=== PATIENT | female | born 1985 | race Two or more races ===

== ENCOUNTER 2023-03-04 05:14 | Inpatient (IN) | payer OTHER ==
[~2023-03-04] VITALS: Ht 172.7 cm; Wt 98.4 kg
[2023-03-04] MEDS ORDERED: PRENATAL CAPLE1 EAC1 PO (06:02)
[2023-03-04] MEDS ORDERED: PEPCID AC20 MG PO (06:02)
[2023-03-04] MEDS ORDERED: FOLIC ACID0.4 MG PO (06:03)
== END 2023-03-06 12:58 | disposition home or self-care (01) | DRG 788 ==
LOC: LDR 05:14 → OB/GYN 21:42
PROVIDERS: ADMIT Obstetrics & Gynecology; ATTEND Obstetrics & Gynecology
PROC: 4A1HXCZ Monitoring of Products of Conception, Cardiac Rate, External Approach (ICD-10-PCS; 2023-03-04)
PROC: 10D00Z1 Extraction of Products of Conception, Low, Open Approach (ICD-10-PCS; principal; 2023-03-04 16:00)
DX: O62.1 Secondary uterine inertia (principal); Z3A.38 38 weeks gestation of pregnancy; Z37.0 Single live birth; Z20.822 Contact with and (suspected) exposure to COVID-19

== ENCOUNTER 2024-09-15 13:00 | Emergency (ER) | payer OTHER ==
[~2024-09-15] VITALS: Ht 172.7 cm; Wt 93.0 kg
[~2024-09-15 13:00] MED LIST: FOLIC ACID0.4 MG PO; PEPCID AC20 MG PO; PRENATAL CAPLE1 EAC1 PO
[2024-09-15] MEDS ORDERED: METHYLPREDNISOLONE SOD SUCC 125 MG VIAL IV ONE (13:30)
[2024-09-15] MEDS ORDERED: HYDROCODONE/CHLORPHEN P-STIREX 5 ML ML PO ONE (13:30)
[2024-09-15] MEDS ORDERED: AZITHROMYCIN 500 MG TABLET PO ONE (13:30)
[2024-09-15] MEDS ORDERED: GUAIFENESIN/DEXTROMETHORPHAN 10ML BLIST.PACK PO ONE (13:45)
[2024-09-15 13:53] LABS: HEMOGLOBIN 12.7 g/dL (12.0-15.00); MEAN CELL VOLUME 90.4 fL (80.00-100.00); MEAN CORPUSCULAR HEMOGLOBIN 31.8 pg (27.00-32.0); MEAN CORPUSCULAR HGB CONC 35.2 g/dl (32.0-36.0); PLATELET COUNT 231 K/uL (150-450); RED BLOOD COUNT 3.98 M/uL (4.00-6.00); RED CELL DISTRIBUTION WIDTH 13.3 % (11.5-14.5)
[2024-09-15 14:18] LABS: BILIRUBIN TOTAL 0.21 mg/dL (0.3-1.2); CALCIUM 8.8 mg/dL (8.5-10.1); CREATININE SERUM 0.74 mg/dL (0.55-1.02); GFR 88.31; GLOBULINA 3.7 G/DL (2.4-3.5); POTASSIUM 3.59 mEq/L (3.5-5.1); TOTAL PROTEIN 6.7 gm/dL (6.4-8.2)
[2024-09-15] MEDS ORDERED: IPRATROPIU0.2 MG/1 M IH (17:24)
[2024-09-15] MEDS ORDERED: AZITHROMYCIN500 MG PO (17:24)
[2024-09-15] MEDS ORDERED: PEPCID AC20 MG PO (17:24)
== END 2024-09-15 17:37 | disposition home or self-care (01) ==
LOC: ER 13:02
PROVIDERS: General Practice
DX: J06.9 Acute upper respiratory infection, unspecified (principal); Z20.822 Contact with and (suspected) exposure to COVID-19

== ENCOUNTER 2024-11-28 13:13 | Outpatient (CLI) | payer OTHER ==
[~2024-11-28 13:13] MED LIST changes: +AZITHROMYCIN500 MG PO; +IPRATROPIU0.2 MG/1 M IH
== END 2024-11-28 13:43 | disposition home or self-care (01) ==
LOC: NST 13:13
PROVIDERS: ATTEND Obstetrics & Gynecology
DX: Z3A.35 35 weeks gestation of pregnancy (principal)

== ENCOUNTER 2024-12-05 13:12 | Outpatient (CLI) | payer OTHER | END 2024-12-05 13:58 | disposition home or self-care (01) | LOC: NST 13:12 | PROVIDERS: ATTEND Obstetrics & Gynecology Gynecology | DX: Z34.83 Encounter for supervision of other normal pregnancy, third trimester (principal) ==

== ENCOUNTER 2024-12-19 11:45 | Inpatient (IN) | payer OTHER ==
[~2024-12-19] VITALS: Ht 172.7 cm; Wt 102.5 kg
[2024-12-19 14:24] LABS: HEMATOCRIT 37.7 % (36.0-45.00); HEMOGLOBIN 13.2 g/dL (12.0-15.00); MEAN CELL VOLUME 89.8 fL (80.00-100.00); MEAN CORPUSCULAR HEMOGLOBIN 31.6 pg (27.00-32.0); MEAN CORPUSCULAR HGB CONC 35.2 g/dl (32.0-36.0); PLATELET COUNT 213 K/uL (150-450); RED BLOOD COUNT 4.19 M/uL (4.00-6.00); RED CELL DISTRIBUTION WIDTH 13.2 % (11.5-14.5)
[2024-12-19 15:09] LABS: INR < 0.93; PARTIAL THROMBOPLASTIN TIME 26.2 SECONDS (22.0-34.0); PROTHROMBIN TIME 9.9 SECONDS (9.0-11.5)
[2024-12-19 16:02] LABS: ALBUMIN 2.9 gm/dL (3.4-5.0); BILIRUBIN TOTAL 0.3 mg/dL (0.3-1.2); CALCIUM 9.1 mg/dL (8.5-10.1); CREATININE SERUM 0.66 mg/dL (0.55-1.02); GFR 100.23; GLOBULINA 3.4 G/DL (2.4-3.5); POTASSIUM 4.71 mEq/L (3.5-5.1); TOTAL PROTEIN 6.3 gm/dL (6.4-8.2)
[2024-12-27 20:00] VITALS: BP 120/80
[2024-12-27] MEDS ORDERED: METFORMIN HCL500 M4 (20:39)
[2024-12-27] MEDS ORDERED: RINGERS SOLUTION,LACTATED 1,000 ML IV SCH (21:00)
[2024-12-27 23:06] VITALS: BP 118/77
[2024-12-28] MEDS ORDERED: AMPICILLIN SODIUM 2,000 MG in 0.9 % SODIUM CHLORIDE 100 ML IV SCH
[2024-12-28] MEDS ORDERED: AMPICILLIN SODIUM 2,000 MG VIAL ONE ×2 (01:10→05:29)
[2024-12-28 03:52] VITALS: BP 115/77
[2024-12-28 06:04] VITALS: BP 118/80; O2SAT 98
[2024-12-28 11:47] VITALS: BP 110/74; O2SAT 99
[2024-12-28] MEDS ORDERED: ERYTHROMYCIN BASE OPHT 1GM EACH TUBE OP ONE (12:35)
[2024-12-28] MEDS ORDERED: OXYTOCIN 10 UNITS/ML VIAL ONE ×2 (12:35→17:35)
[2024-12-28] MEDS ORDERED: CEFAZOLIN SODIUM 1,000 MG VIAL ONE (12:56)
[2024-12-28] MEDS ORDERED: CITRIC ACID/SODIUM CITRATE 30 ML BLIST.PACK PO ONE (12:56)
[2024-12-28] MEDS ORDERED: MORPHINE SULFATE 4 MG/ML CARTRIDGE IV PRN (14:45)
[2024-12-28] MEDS ORDERED: OXYTOCIN 1,000 ML IV ONE (14:45)
[2024-12-28] MEDS ORDERED: RINGERS SOLUTION,LACTATED 1,000 ML IV SCH (14:45)
[2024-12-28] MEDS ORDERED: MORPHINE SULFATE 4 MG/ML VIAL IV ONE ×2 (14:50→15:20)
[2024-12-28] MEDS ORDERED: SIMETHICONE 125 MG CAPSULE PO SCH (17:00)
[2024-12-28] MEDS ORDERED: GABAPENTIN 300 MG CAPSULE PO SCH (17:00)
[2024-12-28] MEDS ORDERED: KETOROLAC TROMETHAMINE 30 MG VIAL ONE (17:35)
[2024-12-28] MEDS ORDERED: AMPICILLIN SODIUM 1,000 MG VIAL ONE (17:36)
[2024-12-28] MEDS ORDERED: ONDANSETRON HCL 2 MG/ML VIAL IV SCH (18:00)
[2024-12-28] MEDS ORDERED: KETOROLAC TROMETHAMINE 30 MG VIAL IV SCH (18:00)
[2024-12-28] MEDS ORDERED: KETOROLAC TROMETHAMINE 30 MG VIAL IV ONE (18:00)
[2024-12-28] MEDS ORDERED: ACETAMINOPHEN 500 MG GEL..CAP PO SCH (18:00)
[2024-12-28 19:15] VITALS: BP 125/82
[2024-12-28 21:52] VITALS: BP 121/82
[2024-12-29 01:00] VITALS: BP 120/77
[2024-12-29 06:24] LABS: HEMATOCRIT 32.9 % (36.0-45.00); HEMOGLOBIN 11.6 g/dL (12.0-15.00); MEAN CELL VOLUME 90.9 fL (80.00-100.00); MEAN CORPUSCULAR HGB CONC 35.2 g/dl (32.0-36.0); PLATELET COUNT 164 K/uL (150-450); RED BLOOD COUNT 3.62 M/uL (4.00-6.00)
[2024-12-29] MEDS ORDERED: OxyCODONE HCL 5 MG TABLET (ROXICODONE) PO PRN (08:00)
[2024-12-29] MEDS ORDERED: KETOROLAC TROMETHAMINE 10 MG TABLET PO SCH (08:00)
[2024-12-29 08:24] VITALS: BP 111/72
[2024-12-29] MEDS ORDERED: DOCUSATE SODIUM 100MG CAP PO SCH (09:00)
[2024-12-29 13:32] VITALS: BP 110/73
[2024-12-29 15:52] VITALS: BP 122/80
[2024-12-30 00:30] VITALS: BP 113/74
[2024-12-30 08:00] VITALS: BP 117/78
== END 2024-12-30 16:12 | disposition home or self-care (01) | DRG 788 ==
LOC: LDR 12-27 20:35 → OB/GYN 12-28 11:00
PROVIDERS: ADMIT Obstetrics & Gynecology; ATTEND Obstetrics & Gynecology
PROC: 10D00Z1 Extraction of Products of Conception, Low, Open Approach (ICD-10-PCS; principal; 2024-12-27)
PROC: 4A1HXCZ Monitoring of Products of Conception, Cardiac Rate, External Approach (ICD-10-PCS; 2024-12-27)
DX: O34.211 Maternal care for low transverse scar from previous cesarean delivery (principal); Z3A.39 39 weeks gestation of pregnancy; Z37.0 Single live birth